=== PATIENT | male | born 1980 | race African-American/Black ===

== ENCOUNTER 2016-09-08 16:03 | Emergency (ER) ==
[2016-09-08 16:10] VITALS: BP 161/75
[2016-09-08] MEDS ORDERED: DECADRON IM ONE (16:55)
[2016-09-08] MEDS ORDERED: ZANTAC PO ONE (16:55)
[2016-09-08] MEDS ORDERED: BENADRYL PO ONE (16:56)
--- NOTE | 2016-09-08 16:59 | PROVIDER DOCUMENTATION ---
HPI-General Adult - General Source: patient - History of Present Illness -Gen Adult Nature of Presenting Problems: 36 y/o M presents to ED cc of swollen upper lip. Pt does take Lisinopril. Pt states he woke up 0600 am and could tell it was swollen states through out the day it had gotten worse. States since 3068-0056 his lip has not increased nor decreased in size. Pt is alert and oriented. Pt is sitting up and able to speak. Location of Pain/Injury: reports: none Pain Radiation: reports: no radiation Quality of Pain: reports: none Onset/Duration: reports: gradual (THROUGHTOUT THE DAY) Timing: reports: still present Context/Activities at Onset: reports: light activity Modifying Factors: improves with: nothing Associated Symptoms: denies: chest pain, fever/chills, headaches, loss of appetite, sinus congestion/drainage, nausea, shortness of breath, swelling/mass in abdomen Similar Symptoms Previously?: No Recently seen or treated by another doctor?: No <Sary Saldivar - Last Filed: 09/08/16 17:11> <To Sosa - Last Filed: 09/08/16 17:57> - General Chief Complaint: Mouth Pain Stated Complaint: LIP SWELLING Time Seen by Provider: 09/08/16 16:38 Allergies/Adverse Reactions: Patient Allergies Allergy/AdvReac Type Severity Reaction Status Date / Time grape Allergy ITCHING Verified 09/08/16 16:32 Home Medications: Home Medication List Medication Instructions Recorded Confirmed Last Taken Type Phenytoin [Dilantin] 400 mg PO QHS #30 capsule 12/17/15 09/08/16 09/08/16 Rx Lisinopril 10 mg PO DAILY #30 tablet 04/17/16 09/08/16 09/08/16 Rx Diphenhydramine [Benadryl] 25 mg PO Q6H PRN #20 capsule 09/08/16 Unknown Rx Hydrochlorothiazide 25 mg PO DAILY #30 tablet 09/08/16 Unknown Rx Prednisone 20 mg PO Q12HR #8 tablet 09/08/16 Unknown Rx Ranitidine HCl [Zantac 75] 75 mg PO BID #8 tablet 09/08/16 Unknown Rx Sertraline [Zoloft] 50 mg PO DAILY 09/08/16 09/08/16 09/08/16 History Review of Systems - Adult - REVIEW OF SYSTEMS - ADULT Constitutional: denies: chills, fever Eyes: denies: discharge, double vision Ears, Nose, Mouth & Throat: reports: mouth swelling, other (upper lip edema). denies: ear pain, epistaxis, throat pain, throat swelling Cardiovascular: denies: chest pain, palpitations Respiratory: denies: cough, shortness of breath Gastrointestinal: denies: abdominal pain, diarrhea, nausea, vomiting Musculoskeletal: denies: bone pain, back pain Neurological: denies: dizziness/vertigo, headache/migraines <Sary Saldivar - Last Filed: 09/08/16 17:11> Past History - Adult - PAST MEDICAL HISTORY-ADULT Review of Records: reports: Old Records Reviewed, Nursing Assessment Review Major Childhood Illnesses: reports: denies history Cardiovascular: reports: HTN Neurological: reports: Seizures/Epilepsy Endocrine/Immune: reports: Diabetes - PRIOR SURGERIES/PROCEDURES Surgical/Procedure History: reports: none - PRIOR HOSPITALIZATIONS Prior Hospitalizations: reports: none - IMMUNIZATION STATUS Childhood Immunizations: See Nurse Assessment Flu Vaccine: See Nurse Assessment - FAMILY HISTORY Family History: reviewed, not pertinent - SOCIAL HISTORY Smoking: greater than 1 pack/day Provider spent 3-5 mins advising pt. on dangers of tobacco.: Discussed manners to quit use, and f/u contacts for add'l counseling. Substance Use: denies <Sary Saldivar - Last Filed: 09/08/16 17:11> Physical Exam-General - PHYSICAL EXAM-ADULT Initial Vital Signs Reviewed: Yes - CONSTITUTIONAL General Appearance: appears well, alert, no apparent distress, other (upper lip edema) - EYES Eyes: pink conjunctivae - HEAD, EARS, NOSE, MOUTH & THROAT HENMT: other (edema to upper lip/ MALLAMPUTTI SCORE OF 1). negative: hearing deficit - NECK Neck: non-tender, full range of motion - GASTROINTESTINAL (ABDOMEN) Abdominal Exam: non tender - MUSCULOSKELETAL Back Exam: no CVA tenderness, no vertebral tenderness - SKIN Integumentary: normal color, normal turgor, warm/dry - NEUROLOGIC Neurologic: director investment banking II-XII nml as tested, grossly normal, no motor/sensory deficits - PSYCHIATRIC Psych/Mental Status: normal mood/affect, normal thought content, normal thought process, oriented x 3 <Sary Saldivar - Last Filed: 09/08/16 17:11> Progress - PLAN OF CARE/RESULTS Progress/Plan/Lab Results: PLAN: TREAT SWELLING WITH MEDICATION/ PRESCRIBE A DIFFERENT BLOOD PRESSURE PILL <Sary Saldivar - Last Filed: 09/08/16 17:11> - PLAN OF CARE/RESULTS Progress/Plan/Lab Results: Patient has been tolerating oral secretions and again says htta tongue size has not been getting bigger. Made aware to stop taking LOI'S/ARB's medications. All questions answered about treatment plan. <To Sosa - Last Filed: 09/08/16 17:57> Departure <Sary Saldivar - Last Filed: 09/08/16 17:11> - Departure Time of Disposition Order: 17:05 Certified Medical Emergency: Emergent <To Sosa - Last Filed: 09/08/16 17:57> - Departure DIAGNOSIS: Angio-edema Qualifiers: Encounter type: initial encounter Qualified Code(s): T78.3XXA - Angioneurotic edema, initial encounter Allergic reaction caused by a drug Qualifiers: Encounter type: initial encounter Qualified Code(s): T78.40XA - Allergy, unspecified, initial encounter Disposition: HOME 01 Condition: Stable Additional Instructions: STOP TAKING LISINOPRIL . FOLLOW UP WITH PRIMARY CARE PHYSICIAN ED Follow Up Instructions: You have been treated by a care provider in the Emergency Department. These instructions are being provided to you so you can have an understanding of how to care for yourself upon discharge. Upon discharge from the Emergency Department, you are responsible for making arrangements for follow-up care by a physician of your choice. Take all prescribed medications as directed. Return to the Emergency Department immediately for any new or worsening symptoms. You may call the Physician Referral phone number at [phone] to obtain a list of Physicians who are taking new patients. Prescriptions: Diphenhydramine [Benadryl] 25 mg PO Q6H PRN #20 capsule PRN Reason: Itching Hydrochlorothiazide 25 mg PO DAILY #30 tablet Prednisone 20 mg PO Q12HR #8 tablet Ranitidine HCl [Zantac 75] 75 mg PO BID #8 tablet Referrals: None,PCP [Primary Care Provider] - Forms: Return to School/Parent Work Instructions: Angioedema, [id number], Drug Allergy, [id number] Physician Attestation - Physician Attestation I, the provider, attest to the following statement:: To Sosa Physician documentation Attestation:: This documentation recorded by the scribe accurately reflects the service I personally performed and the decisions made by me. <To Sosa. - Last Filed: 09/08/16 17:57>
== END 2016-09-08 18:08 | disposition home or self-care (01) ==
LOC: ED 16:03
DX: T78.3XXA Angioneurotic edema, initial encounter (principal); T78.40XA Allergy, unspecified, initial encounter; R22.0 Localized swelling, mass and lump, head; I10 Essential (primary) hypertension; R56.9 Unspecified convulsions; E11.9 Type 2 diabetes mellitus without complications; Z79.899 Other long term (current) drug therapy; F17.210 Nicotine dependence, cigarettes, uncomplicated; Z71.6 Tobacco abuse counseling
CPT/HCPCS: J1100